=== PATIENT | male | born 1965 ===

== ENCOUNTER 2025-03-13 12:43 | Outpatient (RCR) | payer BC, SELFPAY ==
[2025-03-13 12:55] VITALS: BMI 31.4
--- NOTE | 2025-03-13 14:24 | PCDIET ---
Nutrition consult is complete. JAMES
== END 2025-05-28 11:45 | disposition home or self-care (01) ==
LOC: ANHDMC 12:43
DX: I10 Essential (primary) hypertension (principal); E78.00 Pure hypercholesterolemia, unspecified; Z71.3 Dietary counseling and surveillance
CPT/HCPCS: 97802